=== PATIENT | female | born 1975 | race Hispanic/Latino ===

== ENCOUNTER → 2018-12-30 | Day surgery (SDC) | payer BC ==
[~2018-12-30] MED LIST: KETAMINE HCL INJ 50 MG/ML 10 ML VIAL ONE; LOSARTAN POTAS100 MG PO; MIDAZOLAM HCL 2 MG/2 ML VIAL ONE; PROPOFOL IV EMULSION 10 MG/ML 50 ML VIAL ONE
--- OUTSIDE RECORDS SUMMARY | 2018-12-30 09:27 | XMS REPORT | Summary of Care ---
Author Author [facility] Organization [facility] Address Unknown Phone Unavailable Encounter HQ Losr_malinda(FIN) [id number] Date(s): 05/20/17 - 05/20/17 [facility] [address] [place] [address]- Discharge Disposition: Home or Self Care Attending Physician: Jadon Pollard MD Referring Physician: Jadon Pollard MD Vital Signs No data available for this section Problem List Condition Effective Dates Status Health Status Informant Bleeding internal 08/01/12 Active hemorrhoids1 Hematochezia2 08/01/12 Active Hypertension(Confirm Active ed) Internal Active hemorrhoids(Confirme d) Internal Resolved hemorrhoids(Confirme d) Pruritus ani3 08/01/12 Active Residual 08/01/12 Active hemorrhoidal skin tags4 Skin tag(Confirmed) Active 1Data migrated from [employer] on 01/13/15. 2Data migrated from [employer] on 01/13/15. 3Data migrated from [employer] on 01/13/15. 4Data migrated from [employer] on 01/13/15. Allergies, Adverse Reactions, Alerts Substance Reaction Severity Status NKDA Active Medications No data available for this section Results No data available for this section Immunizations No data available for this section Procedures No data available for this section Social History No data available for this section Assessment and Plan No data available for this section
--- OUTSIDE RECORDS SUMMARY | 2018-12-30 09:27 | XMS REPORT | Continuity of Care Document ---
Author Author [facility] Interface Address Unknown Phone Unavailable Problems Problem Status Onset Date Classification Date Reported Comments Source ROUTINE SCREENING BASELINE Active 04/09/2017 [facility] Bleeding internal hemorrhoids<sup>1</sup> Active 08/01/2012 Problem 05/23/2017 Data migrated from [employer] on 01/13/15. [facility] Hematochezia<sup>2</sup> Active 08/01/2012 Problem 05/23/2017 Data migrated from [employer] on 01/13/15. [facility] Pruritus ani<sup>3</sup> Active 08/01/2012 Problem 05/23/2017 Data migrated from [employer] on 01/13/15. [facility] Residual hemorrhoidal skin tags<sup>4</sup> Active 08/01/2012 Problem 05/23/2017 Data migrated from [employer] on 01/13/15. [facility] Hypertension Active Problem 05/23/2017 [facility] Internal hemorrhoids Active Problem 05/23/2017 [facility] Skin tag Active Problem 05/23/2017 [facility] Medications Medication Details Route Status Patient Instructions Ordering Provider Order Date Source Allergies, Adverse Reactions, Alerts Substance Category Reaction Severity Reaction type Status Date Reported Comments Source Immunizations Immunization Date Given Site Status Last Updated Comments Source Results Order Name Results Value Reference Range Date Interpretation Comments Source Breast Mammo Scrn KAJAL incl CAD MA Breast Mammo Scrn KAJAL incl CAD MA BILATERAL FIRST EVER DIGITAL SCREENING MAMMOGRAM WITH CAD: 05/20/2017 CLINICAL: V76.12 Routine/Screening. Current study was evaluated with a Computer Aided Detection (CAD) system. COMPARISON:There are no comparison films available as this is the patient's baseline mammogram. TECHNIQUE: Mammographic views were obtained using digital acquisition. Planana Version 1.3 was utilized for computer aided detection. The tissue of both breasts is heterogeneously dense, which could obscure detection of small masses. FINDINGS: Benign appearing densities are noted in both breasts. There are benign calcifications in both breasts. No significant masses, calcifications, or other findings are seen in either breast. IMPRESSION: BENIGN RECOMMENDATION:There is no mammographic evidence of malignancy. A 1 year screening mammogram is recommended.(05/21/2018) This exam was interpreted at [id number] for [facility]. Kay jackson/cachorro:05/21/2017 08:35:33 Regulator Tester(s): Gwendolyn Delarosa [facility] letter sent: BI-RADS 1/2 Mammogram BI-RADS: 2 Benign 05/20/2017 - - Read by: Kay Wells MD Dictated Date/time: 05/21/17 08:35 Electronically Signed by: Kay Wells MD 05/21/17 08:35 FINAL REPORT [facility] Vital Signs Vital Sign Value Date Comments Source Encounters Location Location Details Encounter Type Encounter Number Reason For Visit Attending Provider ADM Date DC Date Status Source [facility] [id number] Wigberto Pollard 05/20/2017 05/21/2017 [facility] Procedures Procedure Code Date Perfomer Comments Source
[2018-12-30 11:55] VITALS: BP 149/89
--- NOTE | 2018-12-30 16:30 | Operative Report ---
DATE OF PROCEDURE: 12/30/2018 SURGEON: Ruslan Aguirre MD PROCEDURE PERFORMED: Esophagogastroduodenoscopy. PREOPERATIVE DIAGNOSES: Epigastric abdominal pain and gastroesophageal reflux disease. POSTOPERATIVE DIAGNOSES: Gastritis and hiatal hernia. PREOPERATIVE MEDICATIONS: Consisted of IV sedation administered with MAC anesthesia. PROCEDURE IN DETAIL: Using an Olympus Xooker video gastroscope, it was inserted into the patient's oropharynx, advanced to the hypopharynx, and down into the esophagus. The mucosa present in the esophagus was normal. There was evidence of hiatal hernia from 37 to 38 cm, it was sliding type. No evidence of reflux above that. Stomach was entered and insufflated with air. The mucosa present in the cardia, fundus, body, and antrum was viewed. There was evidence of gastritis down in the body and antrum without erosions or ulcerations. Biopsy was obtained looking for H. pylori infection. The motility was normal. The pylorus was visualized and entered. The duodenal bulb and postbulbar duodenum were found to be within normal limits. The endoscope was then withdrawn back up into the stomach, retroflexed viewing the cardia and fundus below, hiatal hernia was noted. The endoscope was then placed back into the body of the stomach and then slowly withdrawn back up into the esophagus, hypopharynx, oropharynx, and out of the patient's mouth and procedure was ended. Ruslan Aguirre MD SAF/MODL /[id number]
== END | disposition home or self-care (01) ==
LOC: OR 09:24
PROVIDERS: ATTEND Internal Medicine Gastroenterology
DX: K21.9 Gastro-esophageal reflux disease without esophagitis (principal); K29.50 Unspecified chronic gastritis without bleeding; K44.9 Diaphragmatic hernia without obstruction or gangrene; I10 Essential (primary) hypertension; Z01.810 Encounter for preprocedural cardiovascular examination; Z68.44 Body mass index [BMI] 60.0-69.9, adult
CPT/HCPCS: 43239; 81025; 93005; J2250; J2704